=== PATIENT | female | born 1995 | race Hispanic/Latino ===

== ENCOUNTER 2020-06-29 15:40 | Emergency (ER) | payer OTHER ==
[~2020-06-29] VITALS: Ht 165.1 cm; Wt 60.6 kg
--- NOTE | 2020-06-29 16:00 | Emergency Department Note ---
History of Present Illnes History of Present Illness Chief Complaint: paresthesia History of Present Illness This is a 25 year old female, with a history of [facility]ogren's [facility] who presents with the onset of intermittent paresthesias of the left parietal occipital area, left face and left side of the back of the tongue that started this morning. The symptoms have been intermittent, and only lasting for a few seconds. She denies any change in taste, temperature sensation, visual changes, slurred speech, or other focal neurologic symptoms. The Paresthesias last for just a few seconds, and then resolve. Patient denies any history of previous similar symptoms. She has a mild, generalized headache, for which she has not taken any medication. She has had no associated visual changes, nausea, vomiting, fever, chills, cough, upper respiratory symptoms, change in taste, or other sick symptoms. Patient's also had no focal weakness, tremor, or near syncopal symptoms Patient has any history of migraine headache, or head injury. Patient's had no difficulty swallowing, dysarthria, confusion. Patient denies any recent life stressors, though she does admit to being somewhat anxious about symptoms she is experiencing today. Historian: Patient Arrival Mode: [employer] Required: No Onset (how long ago): hour(s) (6) Location: left side of scalp, left face and left posterior tongue Quality: "tingling" Severity: mild Onset quality: sudden Duration (how long): hour(s) (6) Timing of current episode: sporadic Progression: waxing and waning Chronicity: new Context: Denies recent illness, Denies recent travel, Denies trauma/injury, Denies new medications Relieving factors: none Exacerbating factors: none Associated symptoms: Reports denies other symptoms, Reports headaches; Denies fever/chills, Denies loss of appetite, Denies malaise, Denies nausea/vomiting, Denies seizure, Denies weakness Treatments prior to arrival: none Past Medical/Family History Physician Review I have reviewed the patient's past medical and family history. Any updates have been documented here. Past Medical History Recent Fever: No Clinical Suspicion of Infectio: No New/Unexplained Change in Ment: No Other Medical History: Sjogren's Syndrome Past Surgical History: None Social History Smoking Cessation: Never Smoker Counseling Performed: No Alcohol Use: None Any Illegal Drug Use: No TB Exposure/Symptoms: No Physically hurt or threatened: No Family History Family history of heart diseas: No Other Any Pre-Existing Lines (PICC,: No Is patient up to date on immun: Yes Review of Systems Review of Systems Constitutional: Denies chills, Denies fever, Denies malaise, Denies weakness EENTM: Denies blurred vision, Denies tearing, Denies double vision, Denies nose congestion Cardiovascular: Reports no symptoms Respiratory: Denies dyspnea Gastrointestinal: Denies diarrhea, Denies nausea, Denies vomiting Musculoskeletal: Reports no symptoms; Denies joint pain, Denies joint swelling, Denies neck pain Integumentary: Denies lumps, Denies rash Neurological: Reports headache, Reports paresthesia, Reports tingling; Denies numbness, Denies seizure, Denies tremors, Denies weakness Psychological: Reports no symptoms Hematological/Lymphatic: Reports no symptoms Review of other systems: All other systems negative Physical Exam Related Data Allergies: Coded Allergies: No Known Allergies (Unverified , 06/29/20) Vital signs reviewed: Yes Physical Exam CONSTITUTIONAL Constitutional: Present well-developed, Present well-nourished; Absent distressed, Absent ill appearing HENT HENT: Present normocephalic, Present atraumatic, Present oropharynx clear/moist, Present oropharynx normal, Present nose normal, Present other (no partoid gland tenderness to palpation, or ); Absent nasal discharge, Absent nasal congestion, Absent oropharyngeal exudate HENT L/R: Present left ext ear normal, Present right ext ear normal EYES Eyes: Reports PERRL, Reports conjunctivae normal, Reports EOM normal, Reports lids normal NECK Neck: Present ROM normal, Present supple; Absent cervical adenopathy PULMONARY Pulmonary: Present effort normal, Present breath sounds normal CARDIOVASCULAR Cardiovascular: Present regular rhythm, Present heart sounds normal, Present capillary refill normal, Present normal rate; Absent murmur GASTROINTESTINAL Abdominal: Present soft, Present nontender, Present bowel sounds normal GENITOURINARY Genitourinary: Present exam deferred SKIN Skin: Present warm, Present dry; Absent erythema, Absent rash MUSCULOSKELETAL Musculoskeletal: Present ROM normal; Absent edema, Absent tenderness NEUROLOGICAL Neurological: Present alert, Present oriented x 3, Present no gross motor or sensory deficits; Absent cranial nerve deficit, Absent sensory deficit, Absent abnormal gait, Absent weakness PSYCHOLOGICAL Psychological: Present mood/affect normal, Present thought content normal, Present judgement normal Results Laboratory Laboratory UPT - negative Lab results reviewed: Yes Imaging Imaging results reviewed: Yes Impressions [place] [address] Patient Name: ZAHIDA MONACO MR #: [id number] : 1995 Age/Sex: 25/F Req #: [id number] Adm Physician: Ordered by: RENATA DIAZ MD Report #: [id number] Location: [facility] Room/Bed: Procedure: [id number] HOPD/CT BRAIN WO-HOPD Exam Date: 06/29/20 Exam Time: 1707 REPORT STATUS: Signed Exam: Head CT without contrast History: Left-sided numbness, headache, facial paresthesia Comparison studies: None Technique: Axial images were obtained from the skull base to the vertex. Coronal and sagittal images reconstructed from the axial data. Dose modulation, iterative reconstruction, and/or weight based adjustment of the mA/kV was utilized to reduce the radiation dose to as low as reasonably achievable. Radiation dose: Total DLP: 969 mGy*cm. Estimated effective dose: DLP x 0.015 Intravenous contrast: None Findings: Scalp: No abnormalities. Bones: No fractures, blastic or lytic lesions. Brain sulci: Appropriate for age. Ventricles: Normal in size and configuration. No hydrocephalus. 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 Extra-axial spaces: No masses, no fluid collection. Parenchyma: No abnormal densities. No masses, hemorrhage, acute or chronic vascular insults. Sellar/suprasellar region: No abnormalities. Craniocervical junction: Patent foramen magnum. No Chiari one malformation. Included paranasal sinuses: Clear. Middle ear cavities and mastoids: Clear. IMPRESSION: No acute abnormalities. Signed by: Dr. Wojciech Alaniz M.D. on 06/29/2020 5:20 PM Dictated By: WOJCIECH ALANIZ MD 19 Transcribed By: JB on 06/29/201719 COPY TO: RENAAT DIAZ MD~ Assessment & Plan Medical Decision Making MDM (DDX: brain tumor, stroke, infection, migraine) - Discussed with patient, that the CT of her brain was normal, and revealed no etiology as to her current symptoms. Patient states that her symptoms are nearly resolved. Explained that the negative CT does not suggest a brain tumor, but that an MRI of the brain would be an additional study, that might be helpful. - Follow-up with your primary care physician tomorrow, 06/30/20, for further evaluation of your symptoms, and possible referral to Neurology and/or MRI of brain. - Your symptoms today, may have been from an "Atypical Migraine." - You may take the following for the headache:(No medications have been taken, at all) - Extra Strength Tylenol 500 mg - 2 tabs together every 4 hours, as needed. You may alternate this with: - Ibuprofen 200 mg - 3 tabs together every 6 hours, as needed, for pain. - Return to the ED, if your symptoms worsen. Assessment & Plan Final Impression: (1) Atypical migraine (2) Paresthesia (3) Headache Depart Disposition: HOME, SELF-[facility] Meds Reported Medications Hydroxychloroquine Sulfate (PLAQUENIL) 200 Mg Tab, 200 MG PO DAILY, #30 TAB 06/29/20 RENATA DIAZ MD Jun 29, 2020 16:00
[2020-06-29] MEDS ORDERED: PLAQUENIL200 MG PO (16:14)
--- NOTE | 2020-06-29 17:23 | Diagnostic Imaging Report ---
Exam: Head CT without contrast History: Left-sided numbness, headache, facial paresthesia Comparison studies: None Technique: Axial images were obtained from the skull base to the vertex. Coronal and sagittal images reconstructed from the axial data. Dose modulation, iterative reconstruction, and/or weight based adjustment of the mA/kV was utilized to reduce the radiation dose to as low as reasonably achievable. Radiation dose: Total DLP: 969 mGy*cm. Estimated effective dose: DLP x 0.015 Intravenous contrast: None Findings: Scalp: No abnormalities. Bones: No fractures, blastic or lytic lesions. Brain sulci: Appropriate for age. Ventricles: Normal in size and configuration. No hydrocephalus. 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 Extra-axial spaces: No masses, no fluid collection. Parenchyma: No abnormal densities. No masses, hemorrhage, acute or chronic vascular insults. Sellar/suprasellar region: No abnormalities. Craniocervical junction: Patent foramen magnum. No Chiari one malformation. Included paranasal sinuses: Clear. Middle ear cavities and mastoids: Clear. IMPRESSION: No acute abnormalities. Signed by: Dr. Cayden Johnson M.D. on 06/29/2020 5:20 PM
[2020-06-29 19:07] VITALS: BP 89/63
== END 2020-06-29 18:48 | disposition home or self-care (01) ==
LOC: FSED 16:21
DX: R20.2 Paresthesia of skin (principal); G43.909 Migraine, unspecified, not intractable, without status migrainosus
CPT/HCPCS: 70450; 81003; 99283